=== PATIENT | male | born 1955 | race Caucasian/White ===

== ENCOUNTER → 2018-03-03 09:11 | Outpatient (CLI) | payer MEDICAID ==
[~2018-03-03] VITALS: Ht 177.8 cm; Wt 103.4 kg
[2018-03-03 10:21] VITALS: Ht 177.8 cm; Wt 103.4 kg
== END | disposition home or self-care (01) ==
LOC: D.FANS 02-24 09:00
DX: Z68.39 Body mass index [BMI] 39.0-39.9, adult (principal)

== ENCOUNTER → 2021-02-08 19:49 | Outpatient (CLI) | payer MEDICARE ==
[2020-10-18 11:33] VITALS: BMI 34.5
[~2021-02-08 19:49] MED LIST: ANASTROZOLE; ANDROGEL5 GM IM; ELIQUIS2.5 MG PO; HYDROCHLOROTH12.5 M1 PO; LISINOPRIL10 MG PO; SORINE80 MG PO
[2021-02-08 20:15] LABS: CHOL - HDL RATIO 6.2 ratio (2.3-4.9); LDL-HDL RATIO 4.5 ratio (1.5-3.5)
== END | disposition home or self-care (01) ==
LOC: D.LABREF 19:49
PROVIDERS: ATTEND Nurse Practitioner Adult Health
DX: I48.0 Paroxysmal atrial fibrillation (principal)

== ENCOUNTER → 2021-03-02 09:42 | Outpatient (CLI) | payer MEDICARE ==
[2020-10-18 11:33] VITALS: BMI 34.5
== END | disposition home or self-care (01) ==
LOC: D.LAB 09:42
PROVIDERS: ATTEND Internal Medicine Pulmonary Disease
DX: Z11.52 Encounter for screening for COVID-19 (principal)

== ENCOUNTER → 2021-03-08 08:48 | Outpatient (CLI) | payer MEDICARE ==
[2020-10-18 11:33] VITALS: BMI 34.5
[2021-03-08 10:48] LABS: BASOPHILS 0.4 % (0-2); EOSINOPHILS 3.2 % (0-7); HEMATOCRIT 49.2 % (42.0-54.0); HEMOGLOBIN 16.5 g/dL (13.5-17.5); LYMPHOCYTES 25.1 % (15-50); MCH 29.6 pg (26.0-34.0); MCHC 33.6 g/dL (31.0-37.0); MCV 88.1 fL (80.0-100.0); MEAN PLATELET VOLUME 8.6 fL (7.4-10.4); MONOCYTES 11.3 % (2-11); PLATELET COUNT 184 10x3/uL (130-400); RBC 5.59 10x6/uL (4.20-6.10); RDW 14.3 % (11.5-14.5); WBC 6.7 10x3/uL (4.8-10.8)
== END | disposition home or self-care (01) ==
LOC: D.LAB 08:15 → D.RT 09:00
PROVIDERS: ATTEND Internal Medicine Pulmonary Disease
DX: R06.09 Other forms of dyspnea (principal)